=== PATIENT | female | born 1965 | race Caucasian/White ===

== ENCOUNTER → 2016-07-19 | Outpatient (CLI) | payer OTHER ==
--- NOTE | 2016-07-21 13:33 | US ---
EXAM DESCRIPTION: Left lower extremity venous duplex Doppler study and color flow imaging: CLINICAL HISTORY: Rule out deep venous thrombosis, left lower extremity pain and swelling. COMPARISON: None. TECHNIQUE: Color-flow imaging and duplex Doppler evaluation of the left lower extremity is performed. FINDINGS: Generalized subcutaneous edema is noted in the region of the calf and ankle. There is normal compressibility, competency and augmentation of the left lower extremity deep venous system. Normal color-flow is noted without any evidence of intraluminal thrombus or intimal thickening. There is no evidence of venous insufficiency. IMPRESSION: Normal duplex Doppler ultrasound examination of deep venous system of the left lower extremity. Electronically signed by: Juan Pablo Roper 07/21/2016 13:31
== END | disposition home or self-care (01) ==
LOC: US 11:17
PROVIDERS: ATTEND Family Medicine
DX: G25.0 Essential tremor (principal); R60.0 Localized edema

== ENCOUNTER → 2019-07-07 | Outpatient (CLI) | payer BC ==
--- NOTE | 2019-07-08 16:10 | US ---
EXAM DESCRIPTION: Soft Tissue,Abdomen: ULTRASOUND. CLINICAL HISTORY: OTHER SPECIFIED SOFT TISSUE DISORDERS COMPARISON: None. TECHNIQUE: Transabdominal scanning: molina-scale mode. Doppler mode. Right lateral anterior abdominal wall. FINDINGS: Scanning the region of palpation. Subcutaneous fat and tissue and muscle well visualized. No dominant solid mass. No distinct cyst. No large calcifications. No edema. No discrete fatty mass. IMPRESSION: Normal ultrasound findings right lateral anterior abdominal wall. Electronically signed by: Kendell Spencer MD 07/08/2019 4:08 PM [facility]
== END ==
LOC: US 14:37
PROVIDERS: ATTEND Nurse Practitioner Family
DX: M79.89 Other specified soft tissue disorders (principal)

== ENCOUNTER → 2019-10-25 | Outpatient (CLI) | payer BC | LOC: GMAM 16:55 | PROVIDERS: ATTEND Family Medicine | DX: R94.5 Abnormal results of liver function studies (principal); R94.6 Abnormal results of thyroid function studies ==

== ENCOUNTER → 2019-10-28 | Outpatient (CLI) | payer BC ==
--- NOTE | 2019-10-29 09:03 | US ---
US THYROID CLINICAL STATEMENT:54 years Female DISORDER OF THYROID UNSPEC. COMPARISON: Ultrasound of the liver on the same visit. TECHNIQUE: Transcutaneous scanning, grayscale and Doppler modes. FINDINGS: Size right thyroid lobe: 3.8 x 1.3 x 1.3 cm Size left thyroid lobe: 3.6 x 1.7 x 1.0 cm Size isthmus: 0.3 cm Estimated total number of nodules greater than or equal to 1 cm: No dominant solid mass, no distinct cyst, no fluid collection, no large calcifications. No dominant solid mass, no distinct cyst, no fluid collection, no large calcifications in the surrounding soft tissues. IMPRESSION: 1. No nodules or cysts in the thyroid gland. Normal size and vascularity. 2. Surrounding soft tissues are unremarkable. *ACR TI-RADS 2017 Recommendations for imaging follow-up of nodules: TR1: No FNA or follow up TR2: No FNA or follow up TR3: FNA if >/= 2.5 cm, follow up if 1.5 - 2.4 cm in 1, 3, and 5 years TR4: FNA if >/= 1.5 cm, follow up if 1.0 - 1.4 cm in 1, 2, 3, and 5 years TR5: FNA if >/= 1.0 cm, follow up if 0.5 - 0.9 cm every year for 5 years ACR TI-RADS recommends that no more than two nodules with the highest ACR TI-RADS total point should be biopsied and no more than four nodules should be followed. These recommendations do not apply to patients with increased risk for thyroid cancer or patients with symptomatic thyroid disease. Electronically signed by: Kendell Spencer MD 10/29/2019 9:02 AM CDT
--- NOTE | 2019-10-29 09:13 | US ---
EXAM DESCRIPTION: Liver: ULTRASOUND. CLINICAL HISTORY: ABNORMAL RESULTS OF LIVER FUNCTION TEST COMPARISON: Ultrasound thyroid on the same visit. TECHNIQUE: Transabdominal scannin-dimensional and Doppler modes.. Technically difficult study due to patient large body habitus. FINDINGS: Gallbladder: Surgically absent. No fluid in the gallbladder fossa. Area is Non-tender with transducer pressure. Common bile duct: caliber 5.6 mm within normal limits. Liver: Heterogeneously dense increased echogenicity; visualization of the posterior liver is significantly limited. Contour liver capsule smooth where seen. No fluid around the liver. Intrahepatic biliary ducts normal caliber. Doppler hepatopedal flow portal vein. 1.1 cm. Long axis right lobe 20.2 cm. Pancreas: normal size and echogenicity. Duct not seen. Right kidney: long axis measures 11.6 cm. Normal cortical echogenicity. Normal cortical thickness. No echogenic stones or hydronephrosis. Aorta proximal: 2.0 cm normal caliber. IMPRESSION: 1. Hepatomegaly with steatosis. Physiologic ducts and vascularity. Limited view of the posterior liver due to patient body habitus and steatosis. Smooth capsule with no ascites. Pancreas unremarkable. 2. Gallbladder surgically removed. No free fluid. Common bile duct normal caliber. 3. Negative findings right kidney. Normal caliber proximal abdominal aorta.. Electronically signed by: Kendell Spencer MD 10/29/2019 9:11 AM CDT
== END ==
LOC: US 10:02
PROVIDERS: ATTEND Family Medicine
DX: R94.5 Abnormal results of liver function studies (principal); K76.0 Fatty (change of) liver, not elsewhere classified; E07.9 Disorder of thyroid, unspecified; Z90.49 Acquired absence of other specified parts of digestive tract

== ENCOUNTER → 2020-03-06 | Outpatient (CLI) | payer BC | LOC: GMAM 17:05 | PROVIDERS: ATTEND Family Medicine | DX: R30.0 Dysuria (principal) ==

== ENCOUNTER → 2020-04-11 | Outpatient (CLI) | payer BC ==
--- NOTE | 2020-04-12 10:10 | RAD ---
EXAM: Chest,2 Views INDICATION: 55 years Female, CORONAVIRUS INFECTION COMPARISON: 2 views of the chest 09/07/2018 FINDINGS: Two views of the chest were performed. Heart size is within normal limits. Millimeter opacity in the medial right middle lobe most likely represents atelectasis. Subtle opacities in the lung bases just above the hemidiaphragms are favored to represent atelectasis, although infiltrate is not excluded. Consider follow-up examination. No pleural effusion. No pneumothorax. The osseous structures are intact. Unremarkable appearance of the visualized upper abdomen. IMPRESSION: Subtle opacities in the lung bases just above the hemidiaphragms are favored to represent atelectasis, although infiltrate is not entirely excluded. Consider follow-up radiographs. Electronically signed by: Paulette Flor MD 04/12/2020 10:08 AM [facility]
== END ==
LOC: LAB.O 11:39
PROVIDERS: ATTEND Family Medicine
DX: B34.2 Coronavirus infection, unspecified (principal); R91.8 Other nonspecific abnormal finding of lung field; R09.02 Hypoxemia; R71.8 Other abnormality of red blood cells

== ENCOUNTER 2020-04-13 12:11 | Observation (INO) | payer BC ==
--- NOTE | 2020-04-13 13:25 | RAD ---
EXAM DESCRIPTION: Chest,2 Views x-ray CLINICAL HISTORY: 55 years Female, COVID COMPARISON: 04/11/2020 IMPRESSION: Heart size and pulmonary vascularity are within normal limits. Subtle patchy bilateral airspace opacities, greatest in the left lower lung, which remain unchanged. The findings are concerning for multifocal pneumonia, including Covid 19. No pleural effusion or pneumothorax. No acute osseous abnormality. Electronically signed by: Nacho oBss MD 04/13/2020 1:23 PM [facility]
--- NOTE | 2020-04-13 17:37 | HP ---
SUPERVISING PHYSICIAN: Remigio Bazzi MD CHIEF COMPLAINT: Worsening shortness of breath. HISTORY OF PRESENT ILLNESS: This is a 55 year-old female with a recent diagnoses if Covid-19 on the . She states since that time she started to feel worse with some worsening shortness of breath as well. She was seen on the by her primary care physician, Dr. Mcclain. Her labs were pretty much unremarkable at that time. Chest x-ray showed some bilateral patchy infiltrates which is consistent with Covid-19. She started to feel worse she was seen via Telemedicine, was seen today and had some labs and x-rays. X-ray shows slightly worsening bilateral airspace opacities. Additionally, the labs came back with white count 4.2, hemoglobin 9.3 which is a drop from the one on the . She had a left shift of 88.8. D-dimer was less than 131. Fibrinogen 281. Glucose elevated at 208. AST slightly elevated at 64, ALT slightly elevated at 113. CRP 1.6. Due to her worsening symptoms she was referred for direct admission. On examination, the patient is alert and oriented without any visible distress at this time. She is able to speak in full sentences. PAST MEDICAL HISTORY: 1, Hyperlipidemia. 2. Hypertension. 3. Asthma. 4. Fatty liver disease. 5. Rheumatoid arthritis. 6. Type 2 diabetes mellitus. 7. Melanoma. PAST SURGICAL HISTORY: 1, Cholecystectomy. 2. x3. 3. Uterine ablation. 4. Esophagogastroduodenoscopy. CURRENT MEDICATIONS: ALLERGIES: Diovan, Cipro, Crestor, Flagyl, Metformin. FAMILY HISTORY: Father had diabetes mellitus. Mother significant for migraines. Brother with hypertension. Three sisters have migraines. SOCIAL HISTORY: No alcohol, no smoking, no illicit drugs. REVIEW OF SYSTEMS: CONSTITUTIONAL: Positive for fever and chills, fatigue. HEENT: Has some nasal drainage and congestion, sinus pressure, no sore throat. She has had a loss of taste and smell. HEART: No chest pain, palpitations, peripheral edema. RESPIRATORY: Positive for cough with some white-colored sputum. Positive for some shortness of breath, pain with exertion. No pleuritic chest pain. ABDOMEN: Loss of appetite, no nausea, vomiting or diarrhea or constipation or abdominal pains. : No dysuria, frequency or flank pain. ENDOCRINE: No polydipsia, polyuria or polyphasia. No heat or cold intolerance. MUSCULOSKELETAL: She has some muscle aches. No joint pain or joint swelling. HEMATOLOGIC: No easy bruising or transfusion reaction. NEUROLOGIC: No seizures, syncope or paresthesias. PHYSICAL EXAMINATION: VITAL SIGNS: Blood pressure 155/86, heart rate 74, respiratory rate 16, temperature 97.7, oxygen saturation 93%. GENERAL: This is a 55 year-old female in no distress. NEUROLOGICAL: The patient is alert. CHEST: Lungs with some mild bibasilar rales. No active lesions. CARDIOVASCULAR: Regular rate and rhythm. Normal S1, S2. ABDOMEN: Soft, positive bowel sounds. EXTREMITIES: Lower extremities without edema. ASSESSMENT: 1. Covid-19 pneumonitis. 2. Hypertension. 3. Type 2 diabetes mellitus. 4. Rheumatoid arthritis. 5. Anemia as per the labs done earlier today. 6. Mildly elevated LFTs with history of fatty liver disease. PLAN: At this time, the patient will be admitted to the hospital with Covid-19 pneumonitis and administration of Remdesivir. dexamethasone as well as empiric Rocephin and azithromycin. Will do typical followup lab and x-rays and do a Covid-19. [address] her on 2,000 calorie ADA diet and utilize sliding scale insulin with glucose coverage. As medications are verified will resume those as well. #[id number] [facility]
[2020-04-13] MEDS ORDERED: SODIUM CHLORIDE 0.9% (FLUSH) 10 ML SYG IV PRN (17:42)
[2020-04-13] MEDS ORDERED: REMDESIVIR 200 MG in SODIUM CHLORIDE 0.9% 250ML 250 ML IVPB ONE (17:45)
[2020-04-13] MEDS ORDERED: DEXAMETHASONE INJ 4 MG/ML VIAL IV SCH (18:00)
[2020-04-13] MEDS ORDERED: IV SET AND CAP CHANGE INJ INJ SCH (18:00)
[2020-04-13] MEDS ORDERED: cefTRIAXone SODIUM 1 GM VIAL IM SCH (18:00)
[2020-04-13] MEDS ORDERED: SODIUM CHLORIDE 0.9% 250ML 250 ML ONE ×2 (18:02→19:15)
[2020-04-13] MEDS ORDERED: DEXAMETHASONE INJ 10 MG/ML VIAL ONE (18:02)
[2020-04-13] MEDS ORDERED: REMDESIVIR IV 100 MG VIAL ONE ×2 (18:03→18:12)
[2020-04-13] MEDS ORDERED: GLUCAGON INJ 1 MG VIAL SUBCU PRN (18:03)
[2020-04-13] MEDS ORDERED: DEXTROSE 50% 25 GM/50 ML SYG IV PRN (18:03)
[2020-04-13] MEDS ORDERED: AZITHROMYCIN IV 500 MG VIAL IVPB ONE (19:15)
[2020-04-13] MEDS ORDERED: cefTRIAXone SODIUM 1 GM VIAL ONE (19:15)
[2020-04-13] MEDS ORDERED: SODIUM CHL 0.9% 50ML MIN-BAG+ 50 ML IVPB ONE (19:16)
[2020-04-13] MEDS ORDERED: ALBUTEROL INHALER 64 PUFF/8GM INH PRN (20:12)
[2020-04-13] MEDS: cefTRIAXone SODIUM 1 GM in SODIUM CHL 0.9% 50ML MIN-BAG+ 50 ML IVPB SCH (20:35)
[2020-04-13] MEDS ORDERED: LISINOPRIL 5 MG TAB ONE (20:49)
[2020-04-13] MEDS ORDERED: metFORMIN HCL 500 MG TAB ONE (20:49)
[2020-04-13] MEDS ORDERED: LISINOPRIL 2.5 MG PO SCH (21:00)
[2020-04-13] MEDS ORDERED: metFORMIN HCL 500 MG TAB PO ONE (21:00)
[2020-04-13] MEDS ORDERED: CINNAMON 500 MG PO SCH (21:00)
[2020-04-13] MEDS ORDERED: NON-FORMULARY MEDICATION 1 EA MIS (Metformin Hcl [Fortamet] 500 MG) PO SCH (21:00)
[2020-04-13] MEDS: INSULIN LISPRO 100 UNITS/ML PEN SUBCU SCH (21:15)
[2020-04-13] MEDS: PROGESTERONE MICRONIZED 100 MG PO SCH (21:18)
[2020-04-13] MEDS: AZITHROMYCIN IV 500 MG in SODIUM CHLORIDE 0.9% 250ML 250 ML IVPB SCH (21:21)
[2020-04-13] MEDS: ALBUTEROL INHALER 64 PUFF/8GM INH SCH (22:45)
--- NOTE | 2020-04-14 06:44 | RAD ---
EXAM: XR Chest, 1 View CLINICAL HISTORY: The patient is 55 years old and is Female; covid-19 TECHNIQUE: Frontal view of the chest. COMPARISON: Chest radiograph April 13, 2020 FINDINGS: LUNGS: Minimal linear opacity in the left lung base is noted. The remainder of the lungs are clear. PLEURAL SPACE: Unremarkable. No pneumothorax. HEART: Unremarkable. No cardiomegaly. MEDIASTINUM: Unremarkable. BONES/JOINTS: Unremarkable. IMPRESSION: Findings suggest improving left basilar opacity. Electronically signed by: Carole Goodrich MD 04/14/2020 6:42 AM [facility]
[2020-04-14] MEDS: metFORMIN HCL 500 MG TAB PO SCH (09:34)
[2020-04-14] MEDS: LINAGLIPTIN 5 MG TAB PO SCH (09:35)
[2020-04-14] MEDS: ASCORBIC ACID 500 MG TAB PO SCH (09:35)
[2020-04-14] MEDS: DEXAMETHASONE INJ 10 MG/ML VIAL IV SCH (09:35)
[2020-04-14] MEDS: LORATADINE 10 MG TAB PO SCH (09:35)
[2020-04-14] MEDS: OMEPRAZOLE CAP 20 MG CAP PO SCH (09:35)
[2020-04-14] MEDS: ALBUTEROL INHALER 64 PUFF/8GM INH SCH ×4 (09:40→21:39)
[2020-04-14] MEDS ORDERED: FLUCONAZOLE 150 MG TAB PO ONE (10:34)
[2020-04-14] MEDS: guaiFENesin ER TAB 600 MG TAB PO SCH ×2 (12:08→20:45)
[2020-04-14] MEDS: INSULIN LISPRO 100 UNITS/ML PEN SUBCU SCH ×4 (12:14→21:20)
[2020-04-14] MEDS: ENOXAPARIN SODIUM 40 MG/0.4 ML SYG SUBCU SCH (12:16)
--- NOTE | 2020-04-14 16:37 | PCM.PROG ---
PCM Subjective - Review of Systems Events since last encounter: Patient states she feels a little better. Still with exertional dyspnea, and cough, but otherwise doing okay. Objective - Exam Vitals and I&O: Vital Signs Temp 97.8 F 04/14/20 14:16 Pulse 74 04/14/20 14:16 Resp 18 04/14/20 14:16 BP 138/81 04/14/20 14:16 Pulse Ox 94 L 04/14/20 14:35 Intake & Output 04/13/20 04/14/20 04/14/20 18:59 06:59 18:59 Intake Total 480 300 Balance 480 300 Weight 199 lb 3.2 oz 199 lb 9.6 oz Intake: Oral 480 300 Other: # Voids 2 2 Weight Measurement Method Built in [facility] General: Alert, Oriented x3 HEENT: Atraumatic, PERRLA, EOMI Neck: Supple, No JVD Lungs: Clear to auscultation Cardiovascular: Regular rate, Normal S1, Normal S2, No murmurs Abdomen: Normal bowel sounds, Soft Psych/Mental Status: Mental status NL - Results Results: 04/14/20 08:00 Pulse Ox, Continuous Monitoring RTQ2 04/14/20 09:00 Ascorbic Acid [Vitamin C] 2,000 mg PO DAILY Dexamethasone Inj [Decadron Inj] 6 mg IV DAILY Linagliptin [Tradjenta] 5 mg PO DAILY Loratadine [Claritin] 10 mg PO DAILY Omeprazole [PriLOSEC Cap] 20 mg PO DAILY@0630 metFORMIN HCL [Glucophage] 1,000 mg PO DAILYBK 04/14/20 10:00 Pulse Ox, Continuous Monitoring RTQ2 04/14/20 11:00 Enoxaparin Sodium [Lovenox] 40 mg SUBCU DAILY guaiFENesin ER TAB [Mucinex Tab] 600 mg PO BID 04/14/20 12:00 Pulse Ox, Continuous Monitoring RTQ2 04/14/20 14:00 Pulse Ox, Continuous Monitoring RTQ2 04/14/20 16:00 Pulse Ox, Continuous Monitoring RTQ2 04/14/20 16:30 GLUCOSE, FINGER STICK ACHS 04/14/20 18:00 Pulse Ox, Continuous Monitoring RTQ2 04/14/20 20:00 Pulse Ox, Continuous Monitoring RTQ2 04/14/20 21:00 GLUCOSE, FINGER STICK ACHS Lisinopril [Prinivil] 2.5 mg PO BEDTIME Remdesivir 100 mg Sodium Chloride 0.9% 250Ml [NS 250ml] 250 ml IVPB Q24H metFORMIN HCL [Glucophage] 500 mg PO BEDTIME 04/14/20 22:00 Pulse Ox, Continuous Monitoring RTQ2 04/15/20 00:00 Pulse Ox, Continuous Monitoring RTQ2 04/15/20 05:00 BASIC METABOLIC PANEL Routine C-REACTIVE PROTEIN Routine CREATINE PHOSPHOKINASE Routine HEPATIC FUNCTION PANEL Routine MAGNESIUM Routine TROPONIN-I Routine D-DIMER,QUANTITATIVE Routine FIBRINOGEN Routine CBC (AUTOMATED) W/AUTO DIFF Routine Laboratory Results WBC 5.4 K/mm3 (4.8-10.8) 04/14/20 06:33 RBC 4.60 M/mm3 (4.20-5.40) D 04/14/20 06:33 Hgb 15.4 gm/dL (12.0-16.0) 04/14/20 06:33 Hct 43.6 % (36.0-47.0) 04/14/20 06:33 MCV 94.6 fl (81.0-99.0) 04/14/20 06:33 MCH 33.4 pg (27.0-31.0) H 04/14/20 06:33 MCHC 35.3 g/dL (33.0-37.0) 04/14/20 06:33 RDW 13.9 % (11.5-14.5) 04/14/20 06:33 Plt Count 157 K/mm3 (130-400) 04/14/20 06:33 MPV 7.5 fl (7.40-10.4) 04/14/20 06:33 Absolute Neuts (auto) 4.40 K/uL (1.8-6.8) 04/14/20 06:33 Absolute Lymphs (auto) 0.80 K/uL (1.0-3.4) L 04/14/20 06:33 Absolute Monos (auto) 0.20 K/uL (0.2-0.8) 04/14/20 06:33 Absolute Eos (auto) 0.00 K/uL (0.0-0.4) 04/14/20 06:33 Absolute Basos (auto) 0.00 K/uL (0.0-0.1) 04/14/20 06:33 Neutrophils % 81.9 % (42.0-78.0) H 04/14/20 06:33 Lymphocytes % 14.0 % (20.0-50.0) L 04/14/20 06:33 Monocytes % 3.7 % (2.0-9.0) 04/14/20 06:33 Eosinophils % 0.1 % (1.0-5.0) L 04/14/20 06:33 Basophils % 0.3 % (0.0-2.0) 04/14/20 06:33 PTT (SP) 24.2 SECONDS (21.8-31.6) 04/14/20 06:33 Fibrinogen 302 mg/dL (210-385) 04/14/20 06:33 D-Dimer, Quantitative < 131.0 ng/ml (131-400) L 04/14/20 06:33 Sodium 139 mmol/L (135-145) 04/14/20 06:33 Potassium 3.5 mmol/L (3.6-5.0) L 04/14/20 06:33 Chloride 103 mmol/L (101-111) 04/14/20 06:33 Carbon Dioxide 24 mmol/L (21-31) 04/14/20 06:33 Anion Gap 15.5 (12-18) 04/14/20 06:33 BUN 14 mg/dL (7-18) 04/14/20 06:33 Creatinine 0.59 mg/dL (0.6-1.3) L 04/14/20 06:33 BUN/Creatinine Ratio 23.7 (10-20) H 04/14/20 06:33 POC Glucose 183 mg/dL (70-105) H D 04/14/20 11:30 Random Glucose 178 mg/dL (70-105) H 04/14/20 06:33 Serum Osmolality 282.4 mOsm/L (275-295) 04/14/20 06:33 Calcium 9.0 mg/dL (8.4-10.2) 04/14/20 06:33 Magnesium 1.9 mg/dL (1.8-2.5) 04/14/20 06:33 Ferritin 465.3 ng/mL (11.0-306.8) H 04/13/20 13:18 Total Bilirubin 0.9 mg/dL (0.2-1.0) 04/14/20 06:33 AST 45 IU/L (10-42) H 04/14/20 06:33 ALT 110 IU/L (10-60) H 04/14/20 06:33 Alkaline Phosphatase 85 IU/L (42-121) 04/14/20 06:33 LD Total 145 IU/L (91-180) D 04/14/20 06:33 Creatine Kinase 92 IU/L (26-140) 04/14/20 06:33 Troponin I < 0.02 ng/mL (0.01-0.05) 04/13/20 13:18 C-Reactive Protein 1.5 mg/dL (0-1.0) H 04/14/20 06:33 Serum Total Protein 7.3 gm/dL (6.4-8.2) 04/14/20 06:33 Albumin 4.4 g/dl (3.2-5.5) 04/14/20 06:33 Globulin 2.9 gm/dL (2.3-3.5) 04/14/20 06:33 Albumin/Globulin Ratio 1.5 (1.1-1.9) 04/14/20 06:33 Assessment/Plan - Problem(s) (1) COVID-19 Plan: Continue current treatment. If remains off of oxygen, anticipate discharge in AM. (2) Diabetes mellitus type 2 in obese Plan: continue sliding scale and home medications (3) Rheumatoid arthritis Plan: No evidence of acute issues. Monitor. (4) Anemia Plan: Recheck shows normal values. Likely a bad sample. (5) Abnormal LFTs Plan: Slight improvement in values. Continue to trend.
[2020-04-14] MEDS: AZITHROMYCIN IV 500 MG in SODIUM CHLORIDE 0.9% 250ML 250 ML IVPB SCH (17:52)
[2020-04-14] MEDS ORDERED: guaiFENesin ER TAB 600 MG TAB ONE (19:41)
[2020-04-14] MEDS ORDERED: LISINOPRIL 5 MG TAB ONE (19:41)
[2020-04-14] MEDS ORDERED: SODIUM CHLORIDE 0.9% 250ML 250 ML ONE (19:42)
[2020-04-14] MEDS ORDERED: REMDESIVIR IV 100 MG VIAL ONE (19:42)
[2020-04-14] MEDS ORDERED: metFORMIN HCL 500 MG TAB ONE (19:42)
[2020-04-14] MEDS: cefTRIAXone SODIUM 1 GM in SODIUM CHL 0.9% 50ML MIN-BAG+ 50 ML IVPB SCH (19:58)
[2020-04-14] MEDS: PROGESTERONE MICRONIZED 100 MG PO SCH (20:44)
[2020-04-14] MEDS ORDERED: LISINOPRIL 5 MG TAB PO SCH (21:00)
[2020-04-14] MEDS ORDERED: REMDESIVIR 100 MG in SODIUM CHLORIDE 0.9% 250ML 250 ML IVPB SCH (21:00)
[2020-04-14] MEDS ORDERED: metFORMIN HCL 500 MG TAB PO SCH (21:00)
[2020-04-15] MEDS: OMEPRAZOLE CAP 20 MG CAP PO SCH (05:58)
--- NOTE | 2020-04-15 07:22 | RAD ---
PROCEDURE:XR CHEST 1 VIEW HISTORY:covid-19 COMPARISON: April 14, 2020 FINDINGS: The heart appears unremarkable. There is a developing faint hazy infiltrates seen within the left upper lobe centrally. This can be secondary to early atypical pneumonia. The lungs are otherwise clear. There are no acute bony or soft tissue abnormalities. IMPRESSION: Faint hazy infiltrates seen within the right upper lobe be secondary to developing atypical pneumonia. Electronically signed by: Seun Magana MD 04/15/2020 7:21 AM [facility]
[2020-04-15] MEDS: metFORMIN HCL 500 MG TAB PO SCH (07:53)
[2020-04-15] MEDS: INSULIN LISPRO 100 UNITS/ML PEN SUBCU SCH ×2 (07:58→13:35)
[2020-04-15] MEDS: ALBUTEROL INHALER 64 PUFF/8GM INH SCH ×2 (08:37→13:31)
[2020-04-15] MEDS: ASCORBIC ACID 500 MG TAB PO SCH (10:44)
[2020-04-15] MEDS: LORATADINE 10 MG TAB PO SCH (10:44)
[2020-04-15] MEDS: LINAGLIPTIN 5 MG TAB PO SCH (10:44)
[2020-04-15] MEDS: ENOXAPARIN SODIUM 40 MG/0.4 ML SYG SUBCU SCH (10:45)
[2020-04-15] MEDS: guaiFENesin ER TAB 600 MG TAB PO SCH (10:45)
[2020-04-15] MEDS: DEXAMETHASONE INJ 10 MG/ML VIAL IV SCH (10:45)
[2020-04-15 15:43] VITALS: BP 118/72; TEMP 97.6; O2SAT 93
--- NOTE | 2020-04-16 13:57 | DS ---
SUPERVISING PHYSICIAN: Remigio Bazzi MD ADMISSION DIAGNOSIS: 1. Covid-19 pneumonitis. 2. Hypertension. 3. Type 2 diabetes mellitus. 4. Rheumatoid arthritis. 5. Elevated LFTs. DISCHARGE DIAGNOSIS: 1. Covid-19 pneumonitis. 2. Hypertension. 3. Type 2 diabetes mellitus. 4. Rheumatoid arthritis. 5. Elevated LFTs. HOSPITAL COURSE: This is a 55 year-old female patient who was diagnosed with Covid-19 on the 07 of April. Her symptoms progressively worsened and she was seen by her primary care physician on the . At that time, she had labs and x-rays done which were pretty much unremarkable except the chest x-ray showing a patchy infiltrate consistent with Covid-19. She started to feel worse. therefore had repeat labs and x-ray on the . At that time, her chest x-ray slightly worsened in addition to the fact she had a low hemoglobin of 9.3 compared with one from the . D-dimer was less than 131. Fibrinogen 281. CRP elevated at 1.6. AST and ALT were elevated as well. Due to this, the patient was referred for direct admission. The whole time she has been here she has not required any oxygen. Her symptoms have progressively improved. Her D-dimer is not elevated and remained less than 131. CRP shows coming down as well. The patient will be discharged today in stable condition. She can followup with her primary care physician next week. However, I have written for 5 more days of dexamethasone as well as for her to take guaifenesin 600 mg p.o. b.i.d. She already has an inhaler and I want her to take that also at 4 times a day. Additionally, diet as tolerated and she needs to remain isolated until cleared by her primary care physician, Dr. Mcclain. #[id number] [facility]
== END 2020-04-15 12:15 | disposition home or self-care (01) ==
LOC: LAB.O 12:11 → MS 17:15 → INTOOBSV 17:15
PROVIDERS: ADMIT Nurse Practitioner; ATTEND Nurse Practitioner
DX: U07.1 COVID-19 (principal); J12.89 Other viral pneumonia; I10 Essential (primary) hypertension; E11.9 Type 2 diabetes mellitus without complications; M06.9 Rheumatoid arthritis, unspecified; R79.89 Other specified abnormal findings of blood chemistry; E78.5 Hyperlipidemia, unspecified; J45.909 Unspecified asthma, uncomplicated; Z88.1 Allergy status to other antibiotic agents; Z88.8 Allergy status to other drugs, medicaments and biological substances; Z85.820 Personal history of malignant melanoma of skin
CPT/HCPCS: 96366; 96367; 96365; 96375; 96376 ×2; 96372 ×3; J0696 ×2; J7050 ×6; J1650 ×2; J1100 ×3; J0456 ×2; J1815; 85379 ×3; 80048; 80053 ×2; 82948 ×5; 36415 ×2; 85384 ×3; 80076; 86140 ×3; 85025 ×3; 82550 ×3; 82728; 83615 ×2; 83735 ×3; 85730; 84484 ×2; 36416 ×3; 71045 ×2; 71046; 94760; 94664; 94640 ×4; 94762 ×2; G0378